=== PATIENT | female | born 1950 | race American Indian/Alaskan Native ===

== ENCOUNTER 2016-10-06 05:45 | Day surgery (SDC) | payer MEDICARE ==
[2016-10-06] MEDS ORDERED: TETRACAINE 0.5% OD NR (06:00)
[2016-10-06] MEDS: VIGAMOX OD SCH ×3 (06:25→06:35)
[2016-10-06] MEDS: MYDRIACYL 1% OD SCH ×3 (06:25→06:35)
[2016-10-06] MEDS: AK-Dilate OD SCH ×3 (06:25→06:35)
[2016-10-06] MEDS ORDERED: NACL BACTERIOSTATIC INFILTRATI ONE (06:32)
--- NOTE | 2016-10-06 06:49 | Anesthesia Day of Surgery ---
Anesthesia Day of Surgery - Day of Surgery Patient Examined: Yes Patient H&P Reviewed: Yes Patient is NPO: Yes Beta Blockers: Yes (metoprolol this am)
--- NOTE | 2016-10-06 06:49 | Anesthesia Consultation ---
Anesthesia Consult and Med Hx Date of service: 10/06/16 - Airway Anesthetic Teeth Evaluation: Good ROM Head & Neck: Adequate Mental/Hyoid Distance: Adequate Mallampati Class: Class I Intubation Access Assessment: Good - Pulmonary Exam CTA: Yes - Cardiac Exam Cardiac Exam: RRR - Pre-Operative Health Status ASA Pre-Surgery Classification: ASA3 Proposed Anesthetic Plan: MAC - Cardiovascular System Hx Hypertension: Yes (since 35 years old) Hx Heart Murmur: Yes (since 89) - Central Nervous System Hx Seizures: Yes (with x1) Hx Psychiatric Problems: No - Gastrointestinal Hx Gastroesophageal Reflux Disease: No - Endocrine Hx Non-Insulin Dependent Diabetes: Yes Hx Thyroid Disease: Yes (Thyroid u/s had 2.9cm right thyroid mass) - Other Systems Hx Cancer: No
[2016-10-06] MEDS ORDERED: VERSED ONE (07:14)
[2016-10-06] MEDS ORDERED: SUBLIMAZE ONE (07:16)
[2016-10-06] MEDS ORDERED: ADRENALIN IR ONE (07:47)
[2016-10-06] MEDS ORDERED: PRED FORTE 1% OD SCH (08:00)
--- NOTE | 2016-10-06 08:11 | Operative Report ---
Operative Report Operative Report: PATIENT'S NAME: DATE OF : DATE OF SURGERY: 10/06/2016 PREOPERATIVE DIAGNOSIS: Cataract right eye POSTOPERATIVE DIAGNOSIS: Same OPERATIVE PROCEDURE: Phacoemulsification with intraocular lens implantation, right eye SURGEON: Theresa Mccann M.D. DUCK OPERATOR SURGEON: Yamil Lens: AO60 18.0 D ANESTHESIA: Monitored anesthesia care in combination with topical and intracameral anesthesia because of the established specific risk of reflux, arrhythmias, or anxiety attacks associated with ocular manipulation, as well as the difficulty of the cable machine operator to manage such potentially catastrophic events while simultaneously attempting to complete the surgical procedure and was deemed necessary for the patient's safety to have an Ballast Regulator Operator present during the procedure whenever possible. An Ballast Regulator Operator was utilized to regulate the intravenous sedation of the patient so the patient was cooperative yet not asleep in order for the patient to successfully maintain fixation of the eye on the operating light of the microscope. COMPLICATIONS: No surgical complications No blood loss. ALLERGIES: Egg cheese fish sulfa PROGNOSIS: Excellent INDICATIONS FOR SURGERY: The patient is undergoing surgery in the hopes of eliminating or improving these visual difficulties. PROCEDURE: Prior to surgery, the patient was instructed to use Acular drops one drop four times daily before surgery. After arriving at the surgery center , the patient was given topical anesthetic and dilating drops, as noted in the record. The patient was then taken into the operating room and given more anesthetic drops. The eyelids, lashes, and lid margins were scrubbed with Betadine solution, and the patient was draped. The Nurse Ballast Regulator Operator administered IV sedation and monitored the patient during the procedure. The eye was then fixated with a 0.12, and a stab incision was made in the peripheral clear cornea into the anterior chamber. This was made on my left side. Viscoelastic was next used to fill the anterior chamber. The eye was once again fixated with the 0.12 forceps and a keratome was used make an incision in clear cornea peripherally on my right hand side temporally. The capsule forceps were used to open the central anterior capsule and then make a continuous round capsulotomy. Hydrodissection was carried out utilizing a cannula and balanced salt solution to delineate the cortical material from the capsule and the nucleus from the cortical material. The phaco tip was introduced into the eye and used to remove the anterior cortical material in the area of the capsulotomy. Then the phaco tip was buried into the nucleus, and a chopping instrument was introduced into the eye and used to provide countertraction in the nucleus between this instrument and the phaco tip fracturing the nucleus. This procedure was repeated multiple times, providing multiple small segments of the lens, and then the phaco tip was used to remove each of these segments. An I/A tip was then used to remove the remaining cortex. The anterior chamber was refilled with viscoelastic. An one-piece, acrylic intraocular lens was then placed into an inserting cartridge. The tip of the inserting cartridge was introduced into the keratome incision and into the anterior chamber. The implant was gently advanced through the cartridge and into the eye, where it unfolded, and both haptics were placed in the capsular bag, where it centered nicely and appeared to be well fixated. After placement of the intraocular lens, the I~and~A handpiece was placed back into the eye and used to remove the viscoelastic, including viscoelastic that was behind the optic of the intraocular lens. The anterior chamber was then filled with balanced salt solution, and hydration of the wound was used to cause swelling of the wound and more appropriate watertight closure. When the wound was found to be firm, the patient was asked to comment on how bright the light was. If there was no light perception at all or if the light was substantially dimmer than during the rest of the surgery, the amount of fluid in the eye was decompressed to lower the intraocular pressure until the patient could see the bright light again. This was done to avoid any damage or decreased blood flow to the optic nerve. MEDICATIONS APPLIED AT END OF SURGERY: One drop of Pred Forte and Vigamox The patient was given a shield to wear at night and was instructed not to rub or push on the eye. DISCHARGE SUMMARY: The patient was released in stable condition. The patient and those with the patient were given a written sheet of postoperative instructions and counseling on any abnormal laboratory studies. The patient is to see us tomorrow for follow-up in the office and is to call immediately for any difficulties. Theresa Mccann M.D. Date
--- NOTE | 2016-10-06 08:12 | Short Stay Summary ---
Short Stay Documentation Date of service: 10/06/16 - History H&P: obtained from office - Allergies and Medications Current Medications: Allergies cheese Allergy (Verified 10/04/16 13:38) rash, itching egg Allergy (Verified 10/04/16 13:38) Itching fish derived Allergy (Verified 10/04/16 13:38) tongue swells milk Allergy (Verified 10/04/16 13:38) rash, itching Sulfa (Sulfonamide Antibiotics) Allergy (Verified 10/04/16 13:38) Rash steroids Allergy (Uncoded 10/04/16 13:38) increased heart rate, passes out Home Medications Medication Instructions Recorded Confirmed Last Taken Type NIFEdipine XL [Procardia Xl] 90 mg PO QDAY 09/04/13 10/06/16 10/06/16 04:30 History metFORMIN [Glucophage] 500 mg PO BID #60 tablet 09/04/13 10/06/16 10/05/16 Rx Metoprolol Succinate [Toprol Xl] 200 mg PO QDAY #30 tab.er.24h 02/25/1410/06/16 04:30 Rx Lisinopril [Zestril] 20 mg PO QDAY 12/19/15 10/06/16 10/06/16 04:30 History Sitagliptin Phosphate [Januvia] 50 mg PO DAILY 07/06/16 10/06/16 10/05/16 History Active Medications Moxifloxacin HCl (Vigamox) 1 drops OD Q5MIN ERICA Stop: 10/06/16 18:00 Last Admin: 10/06/16 06:35 Dose: 1 drops Phenylephrine HCl (Ak-Dilate) 1 drops OD Q5MIN ERICA Stop: 10/06/16 18:00 Last Admin: 10/06/16 06:35 Dose: 1 drops Prednisolone Acetate (Pred Forte 1%) 1 drops OD QID ERICA Tetracaine HCl (Tetracaine 0.5%) 1 drops OD ONCE NR Stop: 10/06/16 18:00 Last Admin: 10/06/16 06:25 Dose: 1 drops Tropicamide (Mydriacyl 1%) 1 drops OD Q5MIN ERICA Stop: 10/06/16 18:00 Last Admin: 10/06/16 06:35 Dose: 1 drops - Brief post op/procedure progress note Date of procedure: 10/06/16 Pre-op diagnosis: CATARACT RIGHT EYE Post-op diagnosis: same Procedure: Phacoemulsification with intraocular lens insertion right eye Anesthesia: MAC Surgeon: FRANCA LELER Estimated blood loss: none Pathology: none Condition: stable - Disposition Condition at discharge: Good Disposition: DISCHARGED TO HOME OR SELFCARE - Discharge Diagnoses (1) Cataract Status: Resolved Short Stay Discharge Plan Follow up with: XU HERMAN MD [Primary Care Provider] - 7 Days
[2016-10-06] MEDS ORDERED: NACL P/F VIAL (10 ML) 10 ML ONE (08:16)
--- NOTE | 2016-10-06 08:59 | Post Anesthesia Evaluation ---
- Post Anesthesia Evaluation Patient Participated: Yes Airway Patent: Yes Stable Respiratory Function: Yes Temp > 96.8F: Yes Pain Manageable: Yes Adequeate Hydration: Yes Anesthesia Complications: No Block Receding Appropriately: Not Applicable
[2016-10-06 09:16] VITALS: BP 135/69
== END 2016-10-06 09:00 | disposition home or self-care (01) ==
LOC: OR 05:45
DX: E11.36 Type 2 diabetes mellitus with diabetic cataract (principal); I10 Essential (primary) hypertension; E78.00 Pure hypercholesterolemia, unspecified; Z98.42 Cataract extraction status, left eye; Z98.51 Tubal ligation status; Z90.710 Acquired absence of both cervix and uterus
CPT/HCPCS: 66984; 82962; J0171; J2250; J3010; V2632

== ENCOUNTER 2016-11-25 17:32 | Emergency (ER) | payer MEDICARE ==
[2016-11-25 19:10] LABS: Basophils % (Auto) 0.9 % (0.0-1.8); Eosinophils % (Auto) 1.7 % (0.0-4.3); Hematocrit 40.4 % (30.3-42.9); Hemoglobin 13.4 gm/dl (10.1-14.3); Mean Corpuscular HGB Conc 33 % (30-34); Mean Corpuscular Hemoglobin 30 pg (28-32); Mean Corpuscular Volume 90 fl (79-97); Platelet Count 228 K/mm3 (140-440); Red Cell Distribution Width 14.4 % (13.2-15.2); White Blood Count 6.4 K/mm3 (4.5-11.0)
[2016-11-25 19:20] LABS: INR 1.02 (0.87-1.13)
[2016-11-25 19:21] LABS: Partial Thromboplastin Time 28.6 Sec. (24.2-36.6)
[2016-11-25 19:24] LABS: BUN/Creatinine Ratio 12.14; Calcium 9.9 mg/dL (8.4-10.2); Chloride 95.5 mmol/L (98-107); Potassium 3.5 mmol/L (3.6-5.0)
--- NOTE | 2016-11-25 20:15 | Cat Scan Report ---
FINAL REPORT EXAM: CT HEAD/BRAIN WO CON HISTORY: neuro deficits TECHNIQUE: CT imaging is acquired through the brain without contrast. Transaxial reformations are provided. PRIORS: None. FINDINGS: Ventricles and CSF spaces are within normal limits. Scattered deep and subcortical white matter hypodense foci are confluent in some areas and are compatible with microvascular angiopathy. No acute intracranial hemorrhage or mass effect. Calvarium and superficial scalp are intact. Partially visualized paranasal sinuses are clear. Mastoids are clear. IMPRESSION: No acute intracranial abnormality. Consider MRI follow-up as warranted. There are chronic sequela of microvascular angiopathy.
--- NOTE | 2016-11-26 04:44 | Emergency Department Report ---
ED General Adult HPI - General Chief complaint: Medical Clearance Stated complaint: WEAKNESS Time Seen by Provider: 11/26/16 04:03 Source: patient, EMS, RN notes reviewed, old records reviewed Mode of arrival: Ambulatory Limitations: No Limitations - History of Present Illness Initial comments: This is a 66-year-old female. She is previously unknown to me. Has a past medical history of diabetes and hypertension. Patient is brought to the hospital by EMS. As per EMS documentation, patient "stood up and felt really weak." She indicated that she hasn't done anything out of the ordinary. The patient indicated to EMS that she felt weak only when standing upright. To me, the patient indicated that she slept sitting up today, and that when she woke up, she felt globally disoriented, and had an uncomfortable sensation inside her head. She did not have pain, she did not have ataxia, blurry vision , slurred speech, focal extremity weakness, focal extremity numbness. Patient reports symptoms lasted for a few seconds and have resolved. Patient denies all complaints at this time. Her symptoms had no exacerbating or relieving factors. -: Sudden Severity scale (0 -10): 0 Consistency: now resolved Improves with: none Worsens with: none Associated Symptoms: weakness. denies: confusion, chest pain, cough, diaphoresis, fever/chills, loss of appetite, malaise, nausea/vomiting, shortness of breath, syncope - Related Data Home Medications Medication Instructions Recorded Confirmed Last Taken NIFEdipine XL [Procardia Xl] 90 mg PO QDAY 09/04/13 10/06/16 10/06/16 04:30 Lisinopril [Zestril] 20 mg PO QDAY 12/19/15 10/06/16 10/06/16 04:30 Sitagliptin Phosphate [Januvia] 50 mg PO DAILY 07/06/16 10/06/16 10/05/16 Previous Rx's Medication Instructions Recorded Last Taken Type metFORMIN [Glucophage] 500 mg PO BID #60 tablet 09/04/13 10/05/16 Rx Metoprolol Succinate [Toprol Xl] 200 mg PO QDAY #30 tab.er.24h 02/25/14 04:30 Rx Allergies Allergy/AdvReac Type Severity Reaction Status Date / Time cheese Allergy rash, Verified 11/25/16 18:18 itching egg Allergy Itching Verified 11/25/16 18:18 fish derived Allergy tongue Verified 11/25/16 18:18 swells milk Allergy rash, Verified 11/25/16 18:18 itching Sulfa (Sulfonamide Allergy Rash Verified 11/25/16 18:18 Antibiotics) steroids Allergy increased Uncoded 11/25/16 18:18 heart rate, passes out ED Review of Systems ROS: Stated complaint: WEAKNESS Other details as noted in HPI Constitutional: denies: fever Eyes: denies: eye discharge, vision change ENT: denies: epistaxis Respiratory: denies: cough Cardiovascular: denies: chest pain, syncope Gastrointestinal: denies: abdominal pain, nausea Genitourinary: denies: urgency, dysuria Musculoskeletal: denies: back pain Neurological: denies: numbness, paresthesias, confusion, abnormal gait, vertigo Psychiatric: anxiety ED Past Medical Hx - Past Medical History Hx Hypertension: Yes (since 35 years old) Hx CVA: No Hx Diabetes: Yes (since 2007) Hx Seizures: Yes (with x1) Hx Kidney Stones: Yes Hx Psychiatric Treatment: No Hx HIV: No Additional medical history: heart murmur. GALLSTONES - Surgical History Additional Surgical History: tubal ligation; hysterectomy. BILATERAL CATARACT REMOVAL - Social History Smoking Status: Never Smoker Substance Use Type: None - Medications Home Medications: Home Medications Medication Instructions Recorded Confirmed Last Taken Type NIFEdipine XL [Procardia Xl] 90 mg PO QDAY 09/04/13 10/06/16 10/06/16 04:30 History metFORMIN [Glucophage] 500 mg PO BID #60 tablet 09/04/13 10/06/16 10/05/16 Rx Metoprolol Succinate [Toprol Xl] 200 mg PO QDAY #30 tab.er.24h 02/25/1410/06/16 04:30 Rx Lisinopril [Zestril] 20 mg PO QDAY 12/19/15 10/06/16 10/06/16 04:30 History Sitagliptin Phosphate [Januvia] 50 mg PO DAILY 07/06/16 10/06/16 10/05/16 History ED Physical Exam - General Limitations: No Limitations General appearance: alert, in no apparent distress - Head Head exam: Present: atraumatic, normocephalic - Eye Eye exam: Present: normal appearance, PERRL, EOMI, other (visual acuity intact to finger counting, reading, color perception and a close distance). Absent: nystagmus - ENT ENT exam: Present: normal exam, normal orophraynx, mucous membranes moist, normal external ear exam - Neck Neck exam: Present: normal inspection, full ROM. Absent: tenderness, meningismus - Respiratory Respiratory exam: Present: normal lung sounds bilaterally. Absent: respiratory distress, wheezes, rales, rhonchi, stridor, decreased breath sounds - Cardiovascular Cardiovascular Exam: Present: regular rate, normal rhythm, normal heart sounds. Absent: bradycardia, tachycardia, irregular rhythm, systolic murmur, diastolic murmur, rubs, gallop - GI/Abdominal GI/Abdominal exam: Present: soft, normal bowel sounds. Absent: distended, tenderness, guarding, rebound, rigid, pulsatile mass - Extremities Exam Extremities exam: Present: normal inspection, full ROM, normal capillary refill. Absent: tenderness, pedal edema, joint swelling, calf tenderness - Back Exam Back exam: Present: normal inspection, full ROM. Absent: tenderness, CVA tenderness (R), CVA tenderness (L), muscle spasm, paraspinal tenderness, vertebral tenderness - Neurological Exam Neurological exam: Present: alert, oriented X3, normal gait (negative pronator drift, normal [id number], negative Romberg, normal gait, normal tandem gait.) , other (Extraocular movements intact. Tongue midline. No facial droop. Facial sensation intact to light touch in the V1, V2, V3 distribution bilaterally. 5 and 5 strength in 4 extremities.. Sensation is intact to light touch in 4 extremities.). Absent: motor sensory deficit - Psychiatric Psychiatric exam: Present: normal affect, normal mood - Skin Skin exam: Present: warm, dry, intact, normal color. Absent: rash ED Course Vital Signs 11/25/16 11/26/16 11/26/16 18:21 02:08 04:00 Temperature 98.1 F Pulse Rate 83 84 81 Respiratory 16 18 Rate Blood Pressure 149/82 Blood Pressure 162/84 146/80 [Right] O2 Sat by Pulse 97 98 98 Oximetry - Reevaluation(s) Reevaluation #1: 11/26/16 04:42 Differential diagnosis: Orthostasis, electrolyte imbalance, dehydration, general medical evaluation Assessment and plan: 66-year-old female with nonspecific symptoms which lasted only a few seconds. Patient asked multiple times without ataxia, and focal weakness, all of which she denies. Her physical examination is unremarkable in the emergency room, she has a normal neurologic examination, laboratory studies were unremarkable, EKG essentially unremarkable and unchanged from prior EKG, no noncontrast CT scan of the brain was also negative. Patient has been observed in the ER for a prolonged period of time, without any evidence of clinical decompensation. Given the description of her symptoms, I think it is very unlikely that the patient had a transient ischemic attack. She will be discharged with instructions to follow-up with an outpatient primary care doctor. Precautions are reviewed. ED Medical Decision Making - Lab Data Result diagrams: 11/25/16 18:53 11/25/16 18:53 Vital Signs 11/25/16 11/26/16 11/26/16 18:21 02:08 04:00 Temperature 98.1 F Pulse Rate 83 84 81 Respiratory 16 18 Rate Blood Pressure 149/82 Blood Pressure 162/84 146/80 [Right] O2 Sat by Pulse 97 98 98 Oximetry Lab Results 11/25/16 11/25/16 11/25/16 Range/Units 18:53 18:53 18:53 WBC 6.4 (4.5-11.0) K/mm3 RBC 4.50 (3.65-5.03) M/mm3 Hgb 13.4 (10.1-14.3) gm/dl Hct 40.4 (30.3-42.9) % MCV 90 (79-97) fl MCH 30 (28-32) pg MCHC 33 (30-34) % RDW 14.4 (13.2-15.2) % Plt Count 228 (140-440) K/mm3 Lymph % (Auto) 21.0 (13.4-35.0) % [place] % (Auto) 7.8 H (0.0-7.3) % Eos % (Auto) 1.7 (0.0-4.3) % Baso % (Auto) 0.9 (0.0-1.8) % Lymph # 1.3 (1.2-5.4) K/mm3 [place] # 0.5 (0.0-0.8) K/mm3 Eos # 0.1 (0.0-0.4) K/mm3 Baso # 0.1 (0.0-0.1) K/mm3 Seg Neutrophils % 68.6 (40.0-70.0) % Seg Neutrophils # 4.4 (1.8-7.7) K/mm3 PT 13.3 (12.2-14.9) Sec. INR 1.02 (0.87-1.13) APTT 28.6 (24.2-36.6) Sec. Thrombin Time (15.1-19.6) Sec. Sodium 135 L (137-145) mmol/L Potassium 3.5 L (3.6-5.0) mmol/L Chloride 95.5 L (98-107) mmol/L Carbon Dioxide 25 (22-30) mmol/L Anion Gap 18 mmol/L BUN 17 (7-17) mg/dL Creatinine 1.4 H (0.7-1.2) mg/dL Estimated GFR 46 ml/min BUN/Creatinine Ratio 12.14 % Glucose 290 H (65-100) mg/dL Calcium 9.9 (8.4-10.2) mg/dL Troponin T (0.00-0.029) ng/mL 11/25/16 11/25/16 Range/Units 18:53 18:53 WBC (4.5-11.0) K/mm3 RBC (3.65-5.03) M/mm3 Hgb (10.1-14.3) gm/dl Hct (30.3-42.9) % MCV (79-97) fl MCH (28-32) pg MCHC (30-34) % RDW (13.2-15.2) % Plt Count (140-440) K/mm3 Lymph % (Auto) (13.4-35.0) % [place] % (Auto) (0.0-7.3) % Eos % (Auto) (0.0-4.3) % Baso % (Auto) (0.0-1.8) % Lymph # (1.2-5.4) K/mm3 [place] # (0.0-0.8) K/mm3 Eos # (0.0-0.4) K/mm3 Baso # (0.0-0.1) K/mm3 Seg Neutrophils % (40.0-70.0) % Seg Neutrophils # (1.8-7.7) K/mm3 PT (12.2-14.9) Sec. INR (0.87-1.13) APTT (24.2-36.6) Sec. Thrombin Time 16.7 (15.1-19.6) Sec. Sodium (137-145) mmol/L Potassium (3.6-5.0) mmol/L Chloride (98-107) mmol/L Carbon Dioxide (22-30) mmol/L Anion Gap mmol/L BUN (7-17) mg/dL Creatinine (0.7-1.2) mg/dL Estimated GFR ml/min BUN/Creatinine Ratio % Glucose (65-100) mg/dL Calcium (8.4-10.2) mg/dL Troponin T < 0.010 (0.00-0.029) ng/mL - EKG Data 11/26/16 04:44 Normal sinus, 82 bpm, normal axis, normal intervals, not morphologically consistent with STEMI. Essentially unchanged from prior EKG December 2015. - Radiology Data Radiology results: report reviewed Critical care attestation.: If time is entered above; I have spent that time in minutes in the direct care of this critically ill patient, excluding procedure time. ED Disposition Clinical Impression: General medical exam Disposition: DISCHARGED TO HOME OR SELFCARE Is pt being admited?: No Does the pt Need Aspirin: No Condition: Good Additional Instructions: continue current outpatient medications. Follow up with a primary care doctor within the next 3-5 days. Return to the ER right away with fevers or chills, chest pain or shortness of breath, unsteady gait, extremity weakness, extremity numbness, bladder or bowel retention or incontinence. Referrals: LENI FARIAS MD [Primary Care Provider] - 3-5 Days
[2016-11-26 05:36] VITALS: BP 140/82
== END 2016-11-26 05:35 | disposition home or self-care (01) ==
LOC: ED 17:32
DX: R53.1 Weakness (principal); E11.9 Type 2 diabetes mellitus without complications; Z91.012 Allergy to eggs; Z88.2 Allergy status to sulfonamides; Z91.011 Allergy to milk products; Z91.013 Allergy to seafood; Z88.8 Allergy status to other drugs, medicaments and biological substances
CPT/HCPCS: 36415; 70450; 80048; 82962; 84484; 85025; 85610; 85670; 85730; 93005; 93010

== ENCOUNTER 2017-02-13 18:45 | Emergency (ER) | payer MEDICARE ==
--- NOTE | 2017-02-13 21:30 | Emergency Department Report ---
ED Extremity Problem HPI - General Chief complaint: Extremity Injury, Lower Stated complaint: SPIDER BITE ON FOOT Time Seen by Provider: 02/13/17 21:25 Source: patient Mode of arrival: Ambulatory Limitations: No Limitations - History of Present Illness Initial comments: Patient requesting evaluation of a rash on the right foot from possible insect bite. Also, requesting medication refill on diabetic test strips Complaint: other (extremity rash) Onset/Timin -: days(s) Location: right, other (foot) History of Same: No -: No myalgia, No arthralgia, No fever, No associated dyspnea Radiation: none Severity scale (0 -10): 0 Quality: other (none) Consistency: other (none) Improves with: nothing Worsens with: nothing Associated Symptoms: rash. denies: chest pain, shortness of breath, fever, myalgias, arthralgias - Related Data Home Medications Medication Instructions Recorded Confirmed Last Taken NIFEdipine XL [Procardia Xl] 90 mg PO QDAY 09/04/13 10/06/16 10/06/16 04:30 Lisinopril [Zestril] 20 mg PO QDAY 12/19/15 10/06/16 10/06/16 04:30 Sitagliptin Phosphate [Januvia] 50 mg PO DAILY 07/06/16 10/06/16 10/05/16 Previous Rx's Medication Instructions Recorded Last Taken Type metFORMIN [Glucophage] 500 mg PO BID #60 tablet 09/04/13 10/05/16 Rx Metoprolol Succinate [Toprol Xl] 200 mg PO QDAY #30 tab.er.24h 02/25/14 04:30 Rx Blood Sugar Diagnostic [One Touch 1 each QID #120 strip 02/13/17 Unknown Rx Ultra Test Strips] Allergies Allergy/AdvReac Type Severity Reaction Status Date / Time cheese Allergy rash, Verified 02/15/17 10:49 itching egg Allergy Itching Verified 02/15/17 10:49 fish derived Allergy tongue Verified 02/15/17 10:49 swells milk Allergy rash, Verified 02/15/17 10:49 itching Sulfa (Sulfonamide Allergy Rash Verified 02/15/17 10:49 Antibiotics) steroids Allergy increased Uncoded 02/15/17 10:49 heart rate, passes out ED Review of Systems ROS: Stated complaint: SPIDER BITE ON FOOT Other details as noted in HPI Comment: All other systems reviewed and negative Constitutional: denies: chills, diaphoresis, fever, malaise, weakness Respiratory: denies: cough, orthopnea, shortness of breath, SOB with exertion, SOB at rest, stridor, wheezing Cardiovascular: denies: chest pain, palpitations, dyspnea on exertion, orthopnea , edema, syncope, paroxysmal nocturnal dyspnea Gastrointestinal: denies: abdominal pain, nausea, vomiting Musculoskeletal: denies: back pain, joint swelling, arthralgia Skin: rash (dorsal right foot). denies: lesions, pruritus Hematological/Lymphatic: denies: easy bleeding, easy bruising, swollen glands ED Past Medical Hx - Past Medical History Hx Hypertension: Yes (since 35 years old) Hx CVA: No Hx Diabetes: Yes (since 2007) Hx Seizures: Yes (with x1) Hx Kidney Stones: Yes Hx Psychiatric Treatment: No Hx HIV: No Additional medical history: heart murmur. GALLSTONES - Surgical History Additional Surgical History: tubal ligation; hysterectomy. BILATERAL CATARACT REMOVAL - Social History Smoking Status: Never Smoker Substance Use Type: None - Medications Home Medications: Home Medications Medication Instructions Recorded Confirmed Last Taken Type NIFEdipine XL [Procardia Xl] 90 mg PO QDAY 09/04/13 10/06/16 10/06/16 04:30 History metFORMIN [Glucophage] 500 mg PO BID #60 tablet 09/04/13 10/06/16 10/05/16 Rx Metoprolol Succinate [Toprol Xl] 200 mg PO QDAY #30 tab.er.24h 02/25/1410/06/16 04:30 Rx Lisinopril [Zestril] 20 mg PO QDAY 12/19/15 10/06/16 10/06/16 04:30 History Sitagliptin Phosphate [Januvia] 50 mg PO DAILY 07/06/16 10/06/16 10/05/16 History Blood Sugar Diagnostic [One Touch 1 each QID #120 strip 02/13/17 Unknown Rx Ultra Test Strips] ED Physical Exam - General Limitations: No Limitations General appearance: alert, in no apparent distress - Head Head exam: Present: atraumatic, normocephalic, normal inspection - Eye Eye exam: Present: normal appearance Pupils: Present: normal accommodation - ENT ENT exam: Present: normal exam, normal orophraynx, mucous membranes moist. Absent: mucous membranes dry - Neck Neck exam: Present: normal inspection, full ROM. Absent: tenderness, meningismus, lymphadenopathy, thyromegaly - Respiratory Respiratory exam: Present: normal lung sounds bilaterally. Absent: respiratory distress, wheezes, rales, rhonchi, stridor, chest wall tenderness, accessory muscle use, decreased breath sounds, prolonged expiratory - Cardiovascular Cardiovascular Exam: Present: regular rate, normal rhythm, normal heart sounds. Absent: systolic murmur, diastolic murmur, rubs, gallop - Extremities Exam Extremities exam: Present: normal inspection, full ROM, normal capillary refill. Absent: tenderness, pedal edema, joint swelling, calf tenderness - Back Exam Back exam: Present: normal inspection, full ROM. Absent: CVA tenderness (R), CVA tenderness (L), muscle spasm, paraspinal tenderness, vertebral tenderness - Neurological Exam Neurological exam: Present: alert, oriented X3, CN II-XII intact, normal gait, reflexes normal. Absent: motor sensory deficit - Psychiatric Psychiatric exam: Present: normal affect, normal mood. Absent: depressed, agitated - Skin Skin exam: Present: warm, dry, intact, normal color, other (2 cm indentation in right foot from shoe strap). Absent: rash, cyanosis, diaphoretic, erythema, urticaria, vesicles, petechiae, pallor, abrasion, ecchymosis ED Course Vital Signs 02/13/17 02/13/17 19:53 21:54 Temperature 98.8 F Pulse Rate 86 76 Respiratory 18 18 Rate Blood Pressure 173/93 Blood Pressure 168/87 [Right] O2 Sat by Pulse 99 99 Oximetry ED Medical Decision Making - Lab Data Vital Signs 02/13/17 02/13/17 19:53 21:54 Temperature 98.8 F Pulse Rate 86 76 Respiratory 18 18 Rate Blood Pressure 173/93 Blood Pressure 168/87 [Right] O2 Sat by Pulse 99 99 Oximetry - Medical Decision Making During the course of ED, all other systems are unremarkable except for documentation in HPI. Patient was sent home with a prescription for a refill on her diabetic test strip, instructed not to lace her shoe strap so tight and follow up with her PCP. She verbalized understanding - Differential Diagnosis Rash, Insect Bite Critical care attestation.: If time is entered above; I have spent that time in minutes in the direct care of this critically ill patient, excluding procedure time. ED Disposition Clinical Impression: Rash at application site, Encounter for medication refill Disposition: TO HOME OR SELFCARE Is pt being admited?: No Does the pt Need Aspirin: No Condition: Stable Instructions: Acute Rash (ED) Additional Instructions: Follow up with PCP Prescriptions: Blood Sugar Diagnostic [One Touch Ultra Test Strips] 1 each QID #120 strip Referrals: PRIMARY CARE, [Primary Care Provider] - 3-5 Days Time of Disposition: 21:30
[2017-02-13 21:56] VITALS: BP 168/87
== END 2017-02-13 21:55 | disposition home or self-care (01) ==
LOC: ED 18:45
DX: R21 Rash and other nonspecific skin eruption (principal); E11.9 Type 2 diabetes mellitus without complications; I10 Essential (primary) hypertension; Z91.013 Allergy to seafood; Z91.018 Allergy to other foods; Z91.011 Allergy to milk products; Z91.012 Allergy to eggs
CPT/HCPCS: 99282

== ENCOUNTER 2017-02-15 09:44 | Emergency (ER) | payer MEDICARE ==
[2017-02-15 14:16] LABS: Anion Gap 19 mmol/L; BUN/Creatinine Ratio 11.81; Blood Urea Nitrogen 13 mg/dL (7-17); Carbon Dioxide 26 mmol/L (22-30); Chloride 98.7 mmol/L (98-107); Glucose 159 mg/dL (65-100); Potassium 3.9 mmol/L (3.6-5.0); Sodium 140 mmol/L (137-145)
--- NOTE | 2017-02-15 16:26 | Emergency Department Report ---
HPI - General Chief Complaint: Recheck/Abnormal Lab/Rx Time Seen by Provider: 02/15/17 16:19 - HPI HPI: This is a 66 year-old female presents to the emergency department from home with concern that she might develop hypoglycemia after she accidentally took an extra Januvia this morning. She took the first one at 6 in the morning and then forgot she had taken it and took a second pill at 7:30 AM. Since the patient lives home alone she called EMS to be evaluated as she was concerned that it could cause some problems. However the patient has no physical complaints at all. Her primary care doctor is Dr. Joseph Herman. She denies any chest pain, shortness of breath, headache, dizziness. ED Past Medical Hx - Past Medical History Hx Hypertension: Yes (since 35 years old) Hx CVA: No Hx Diabetes: Yes (since 2007) Hx Seizures: Yes (with x1) Hx Kidney Stones: Yes Hx Psychiatric Treatment: No Hx HIV: No Additional medical history: heart murmur. GALLSTONES. HIGH CHOLESTEROL. GLAUCOMA - Surgical History Additional Surgical History: tubal ligation; hysterectomy. BILATERAL CATARACT REMOVAL - Social History Smoking Status: Never Smoker Substance Use Type: None - Medications Home Medications: Home Medications Medication Instructions Recorded Confirmed Last Taken Type NIFEdipine XL [Procardia Xl] 90 mg PO QDAY 09/04/13 10/06/16 10/06/16 04:30 History metFORMIN [Glucophage] 500 mg PO BID #60 tablet 09/04/13 10/06/16 10/05/16 Rx Metoprolol Succinate [Toprol Xl] 200 mg PO QDAY #30 tab.er.24h 02/25/1410/06/16 04:30 Rx Lisinopril [Zestril] 20 mg PO QDAY 12/19/15 10/06/16 10/06/16 04:30 History Sitagliptin Phosphate [Januvia] 50 mg PO DAILY 07/06/16 10/06/16 10/05/16 History Blood Sugar Diagnostic [One Touch 1 each QID #120 strip 02/13/17 Unknown Rx Ultra Test Strips] ED Review of Systems ROS: Stated complaint: LOW BLOOD SUGAR Other details as noted in HPI Comment: All other systems reviewed and negative Constitutional: denies: chills, fever Eyes: denies: eye pain, eye discharge, vision change ENT: denies: ear pain, throat pain Respiratory: denies: cough, shortness of breath, wheezing Cardiovascular: denies: chest pain, palpitations Gastrointestinal: denies: abdominal pain, nausea, diarrhea Genitourinary: denies: urgency, dysuria, discharge Musculoskeletal: denies: back pain, joint swelling, arthralgia Skin: denies: rash, lesions Neurological: denies: headache, weakness, paresthesias Physical Exam - Physical Exam Vital Signs: Vital Signs 02/15/17 10:50 Temperature 98.0 F Pulse Rate 74 Respiratory 17 Rate Blood Pressure 147/84 O2 Sat by Pulse 95 Oximetry Physical Exam: GENERAL: The patient is well-developed well-nourished. HEENT: Normocephalic. Atraumatic. Extraocular motions are intact. Patient has moist mucous membranes. Pupils equal reactive to light bilaterally. NECK: Supple. Trachea is midline. CHEST/LUNGS: Clear to auscultation. There is no respiratory distress noted. HEART/CARDIOVASCULAR: Regular. There is no tachycardia. There is no gallop rub or murmur. ABDOMEN: Abdomen is soft, nontender. Patient has normal bowel sounds. There is no abdominal distention. SKIN: Skin is warm and dry. NEURO: The patient is awake, alert, and oriented. The patient is cooperative. The patient has no focal neurologic deficits. The patient has normal speech. MUSCULOSKELETAL: There is no tenderness or deformity. There is no limitation range of motion. There is no evidence of acute injury. ED Course Vital Signs 02/15/17 10:50 Temperature 98.0 F Pulse Rate 74 Respiratory 17 Rate Blood Pressure 147/84 O2 Sat by Pulse 95 Oximetry ED Medical Decision Making - Lab Data Result diagrams: 02/15/17 13:45 - Medical Decision Making 66-year-old female presents to the emergency department by EMS from home so she can be monitored as she took an extra Januvia this morning around 7 AM by accident. The patient has been in the emergency department for about 7 hours and has had her blood sugar checked multiple times both by Accu-Chek and from serum metabolic panel and her blood sugar has remained steady. She does not appear to be in diabetic ketoacidosis, H&H and cayenne she has not had any episodes of hypoglycemia. The patient is awake and alert and reports no complaints. She appears safe for discharge home at this time. She is being encouraged follow-up with her primary care doctor and return to the ER with any worsening of her symptoms or any acute distress. - Differential Diagnosis hypoglycemia, DKA, H&H NK Critical Care Time: No Critical care attestation.: If time is entered above; I have spent that time in minutes in the direct care of this critically ill patient, excluding procedure time. ED Disposition Clinical Impression: Diabetes Qualifiers: Diabetes mellitus type: type 2 Diabetes mellitus complication status: without complication Diabetes mellitus snf insulin use: unspecified snf insulin use status Qualified Code(s): E11.9 - Type 2 diabetes mellitus without complications Disposition: DC-01 TO HOME OR SELFCARE Is pt being admited?: No Condition: Good Instructions: Diabetes Mellitus Type 2 in Adults (ED) Additional Instructions: His follow-up with your primary care doctor when you're able to do so. Return to the emergency Department with any worsening of your symptoms or any acute distress. Referrals: SHAKA FRIAS MD [Primary Care Provider] - 3-5 Days XU HERMAN MD [Referring] - 3-5 Days Time of Disposition: 16:40
[2017-02-15 17:42] VITALS: BP 148/90
== END 2017-02-15 17:41 | disposition home or self-care (01) ==
LOC: ED 09:44
DX: E11.649 Type 2 diabetes mellitus with hypoglycemia without coma (principal); I10 Essential (primary) hypertension
CPT/HCPCS: 36415; 80048; 82962; 99284

== ENCOUNTER 2017-04-19 08:57 | Emergency (ER) | payer MEDICARE ==
[2017-04-19 09:30] LABS: Basophils % (Auto) 0.6 % (0.0-1.8); Eosinophils % (Auto) 1.4 % (0.0-4.3); Hematocrit 40.8 % (30.3-42.9); Hemoglobin 13.7 gm/dl (10.1-14.3); Mean Corpuscular HGB Conc 34 % (30-34); Mean Corpuscular Hemoglobin 30 pg (28-32); Mean Corpuscular Volume 90 fl (79-97); Platelet Count 240 K/mm3 (140-440); Red Blood Count 4.55 M/mm3 (3.65-5.03); Red Cell Distribution Width 14.5 % (13.2-15.2); White Blood Count 6.9 K/mm3 (4.5-11.0)
[2017-04-19 09:47] LABS: Alanine Aminotransferase 13 units/L (7-56); Albumin 3.8 g/dL (3.9-5); Albumin/Globulin Ratio 0.8 %; Alkaline Phosphatase 65 units/L (35-129); Anion Gap 20 mmol/L; Blood Urea Nitrogen 12 mg/dL (7-17); Calcium 9.2 mg/dL (8.4-10.2); Carbon Dioxide 23 mmol/L (22-30); Glucose 149 mg/dL (65-100); Lipase 44 units/L (13-60); Potassium 4.2 mmol/L (3.6-5.0); Sodium 139 mmol/L (137-145); Total Protein 8.5 g/dL (6.3-8.2)
[2017-04-19 09:50] LABS: Bacteria,Urine 2+ /HPF (Negative); Bilirubin,Urine NEG (Negative); Blood,Urine NEG (Negative); Ketones,Urine NEG (Negative); Leukocyte Esterase,Urine NEG (Negative); Nitrite,Urine NEG (Negative); Urobilinogen,Urine < 2.0 mg/dL (<2.0); WBC,Urine < 1.0 /HPF (0.0-6.0)
--- NOTE | 2017-04-19 10:42 | Emergency Department Report ---
HPI - General Chief Complaint: Abdominal Pain Time Seen by Provider: 04/19/17 10:12 - HPI HPI: His is a 66-year-old -[place] female presents to the emergency department home with complaint of a 4 day history of intermittent lower abdominal and/or suprapubic discomfort. She denies any dysuria, vaginal discharge, hematuria, vaginal bleeding. She denies any current nausea or vomiting but did have one episode of vomiting last night. She denies any fever , back pain. She hasn't taken anything for symptoms prior to presentation. She does admit to increased urination. Sometimes she also says that she will get up and some of her clothes will be wet and she thinks that she urinated on herself. She says she went to a coat repair inspector who thought it sounded like she had a urinary tract infection and she was placed on Cipro. She says that she took only 1 or 2 doses as medication made her feel worse and urinated on herself. No recent travel or sick contacts at home. She has a past medical history of hypertension, [id number] diabetes, kidney stones, gallstones, hyperlipidemia. Her primary care physician is Dr. Yancey. ED Past Medical Hx - Past Medical History Hx Hypertension: Yes (since 35 years old) Hx CVA: No Hx Diabetes: Yes (since 2007) Hx Seizures: Yes (with x1) Hx Kidney Stones: Yes Hx Psychiatric Treatment: No Hx HIV: No Additional medical history: heart murmur. GALLSTONES. HIGH CHOLESTEROL. GLAUCOMA - Surgical History Additional Surgical History: tubal ligation; hysterectomy. BILATERAL CATARACT REMOVAL - Social History Smoking Status: Never Smoker Substance Use Type: None - Medications Home Medications: Home Medications Medication Instructions Recorded Confirmed Last Taken Type NIFEdipine XL [Procardia Xl] 90 mg PO QDAY 09/04/13 10/06/16 10/06/16 04:30 History metFORMIN [Glucophage] 500 mg PO BID #60 tablet 09/04/13 10/06/16 10/05/16 Rx Metoprolol Succinate [Toprol Xl] 200 mg PO QDAY #30 tab.er.24h 02/25/1410/06/16 04:30 Rx Lisinopril [Zestril] 20 mg PO QDAY 12/19/15 10/06/16 10/06/16 04:30 History Sitagliptin Phosphate [Januvia] 50 mg PO DAILY 07/06/16 10/06/16 10/05/16 History Blood Sugar Diagnostic [One Touch 1 each QID #120 strip 02/13/17 Unknown Rx Ultra Test Strips] Nitrofurantoin Porter/M-Cryst 100 mg PO Q12HR #10 capsule 04/19/17 Unknown Rx [Macrobid CAP] ED Review of Systems ROS: Stated complaint: ABDOMINAL PAIN/FREQUENT URINATION Other details as noted in HPI Comment: All other systems reviewed and negative Constitutional: denies: chills, fever Eyes: denies: eye pain, eye discharge, vision change ENT: denies: ear pain, throat pain Respiratory: denies: cough, shortness of breath, wheezing Cardiovascular: denies: chest pain, palpitations Endocrine: increased urine. denies: increased thirst Gastrointestinal: abdominal pain. denies: constipation Genitourinary: frequency. denies: dysuria, hematuria Musculoskeletal: denies: back pain, joint swelling, arthralgia Skin: denies: rash, lesions Neurological: denies: headache, weakness, paresthesias Physical Exam - Physical Exam Vital Signs: Vital Signs 04/19/17 09:06 Temperature 97.8 F Pulse Rate 82 Respiratory 19 Rate Blood Pressure 184/98 O2 Sat by Pulse 99 Oximetry Physical Exam: GENERAL: The patient is well-developed well-nourished. HEENT: Normocephalic. Atraumatic. Extraocular motions are intact. Patient has moist mucous membranes. Pupils equal reactive to light bilaterally. NECK: Supple. Trachea is midline. CHEST/LUNGS: Clear to auscultation. There is no respiratory distress noted. HEART/CARDIOVASCULAR: Regular. There is no tachycardia. There is no gallop rub or murmur. ABDOMEN: Abdomen is soft, nontender. No guarding or rebound tenderness. Patient has normal bowel sounds. There is no abdominal distention. SKIN: Skin is warm and dry. NEURO: The patient is awake, alert, and oriented. The patient is cooperative. The patient has no focal neurologic deficits. The patient has normal speech. MUSCULOSKELETAL: There is no tenderness or deformity. There is no limitation range of motion. There is no evidence of acute injury. ED Course Vital Signs 04/19/17 09:06 Temperature 97.8 F Pulse Rate 82 Respiratory 19 Rate Blood Pressure 184/98 O2 Sat by Pulse 99 Oximetry ED Medical Decision Making - Lab Data Result diagrams: 04/19/17 09:14 04/19/17 09:14 - Radiology Data Radiology results: report reviewed, image reviewed interpreted by me: Abdominal x-ray shows a few air-fluid levels but otherwise no significant acute process and no signs of obstruction. Bilateral renal ultrasound is unremarkable. - Medical Decision Making 66-year-old female presents with a few days of some intermittent lower abdominal discomfort. She also has some difficulty with urination and occasionally will urinate on herself. Her labs are unremarkable including no urinary tract infection. However the patient went to the bathroom about 5 minutes prior to my examination and when I held the ultrasound up to her bladder it still appeared to have a moderate amount of urine. Along with her history this appears consistent with some urinary retention. I discussed with the patient about doing a Villatoro catheter but she would not allow me to do so. I then suggested a straight cath to empty the bladder but she also would not allow this. Patient will need to follow-up with a urologist and I placed her on Macrobid prophylactically so she does not develop a urinary tract infection from the stagnant urine. She currently has no abdominal pain to palpation or any abdominal pain in general. Vital signs stable. Renal ultrasound is unremarkable. Abdominal x-ray does not show any acute process. She was given a referral for primary care doctor and urology. She will return to the ER for any worsening of her symptoms or any acute distress. - Differential Diagnosis urinary retention, colitis, UTI, fibroids Critical Care Time: No Critical care attestation.: If time is entered above; I have spent that time in minutes in the direct care of this critically ill patient, excluding procedure time. ED Disposition Clinical Impression: Urinary retention Abdominal pain Qualifiers: Abdominal location: lower abdomen, unspecified Qualified Code(s): R10.30 - Lower abdominal pain, unspecified Hypertension Qualifiers: Hypertension type: essential hypertension Qualified Code(s): I10 - Essential ( primary) hypertension Disposition: TO HOME OR SELFCARE Is pt being admited?: No Condition: Stable Instructions: Acute Urinary Retention in Women (ED), Abdominal Pain (ED), Hypertension (ED) Additional Instructions: Please follow-up with your primary care physician in the next few days. I referral for a local urologist, Dr. Mak, in order to follow-up regarding your urinary retention. Return to the emergency department with any worsening of your symptoms or any acute distress. Try and stay away from foods that are high in salt and caffeinated products. Keep a blood pressure log. Prescriptions: Nitrofurantoin Porter/M-Cryst [Macrobid CAP] 100 mg PO Q12HR #10 capsule Referrals: PRIMARY CARE, [Primary Care Provider] - 3-5 Days NOEMY MAK MD [Staff Physician] - [facility] Time of Disposition: 12:29
--- NOTE | 2017-04-19 11:54 | Ultrasound Report ---
ULTRASOUND RENAL BILATERAL HISTORY: Urinary retention, abdominal pain. TECHNIQUE: transabdominal ultrasound with color Doppler interrogation. FINDINGS: Scans of the kidneys show normal renal contours. There is normal central calyceal clustering and good preservation of the cortical thickness. There is no evidence of mass or hydronephrosis. The views of the bladder and the region of the ureters appear normal. IMPRESSION: Unremarkable renal ultrasound.
[2017-04-19] MEDS ORDERED: NACL ONE (12:17)
--- NOTE | 2017-04-19 12:43 | XRay Report ---
ABDOMEN, 2 views: History: Abdominal pain. There is no evidence of free air beneath the diaphragms. The gas pattern within the abdomen is unremarkable. There is no evidence of bowel dilatation, significant air-fluid levels, or pathologic calcifications. Organ shadows are unremarkable. IMPRESSION: Unremarkable abdomen.
[2017-04-19 12:55] VITALS: BP 160/89
== END 2017-04-19 13:07 | disposition home or self-care (01) ==
LOC: ED 08:57
DX: R33.9 Retention of urine, unspecified (principal); R10.30 Lower abdominal pain, unspecified; I10 Essential (primary) hypertension; E11.9 Type 2 diabetes mellitus without complications; E78.00 Pure hypercholesterolemia, unspecified; Z98.51 Tubal ligation status; Z90.710 Acquired absence of both cervix and uterus
CPT/HCPCS: 36415; 74020; 76770; 80053; 81001; 82962; 83690; 85025; 99284